=== PATIENT | male | born 1955 | race Caucasian/White ===

== ENCOUNTER 2016-10-03 02:49 | Day surgery (SDC) | payer OTHER ==
[~2016-10-03 02:49] MED LIST: AMLO10TA3 PO; ATEN50TA PO; FERR-83 PO; OMEP40CA36 PO; SPIR100T3 PO
[2016-10-03] MEDS ORDERED: 0.9% Sodium Chloride 1,000 ML IV SCH (06:00)
[2016-10-03] MEDS ORDERED: fentaNYL-PF 50 mCg/mL 2 mL Inj IVPUSH PRN (06:00)
[2016-10-03] MEDS ORDERED: Sodium Chloride LOK Flush 10 mL Syringe IV PRN (06:00)
[2016-12-08] MEDS ORDERED: LEDI1TAB PO (14:46)
== END 2016-10-03 23:59 ==
LOC: END 02:49
PROVIDERS: ATTEND Internal Medicine Gastroenterology
DX: K74.69 Other cirrhosis of liver (principal); F17.210 Nicotine dependence, cigarettes, uncomplicated; Z79.899 Other long term (current) drug therapy

== ENCOUNTER 2016-10-12 11:08 | Day surgery (SDC) | payer OTHER ==
[~2016-10-12] VITALS: Ht 180.3 cm; Wt 114.0 kg
[~2016-10-12 11:08] MED LIST changes: +Sodium Chloride LOK Flush 10 mL Syringe IV PRN; +fentaNYL-PF 50 mCg/mL 2 mL Inj IVPUSH PRN
[2016-10-12 11:49] VITALS: BP 115/67; PULSE 67; RESP 16; O2SAT 95
[2016-10-12] MEDS: 0.9% Sodium Chloride 1,000 ML IV PRN ×2 (12:18→12:36)
[2016-10-12 12:50] VITALS: BP 116/74; PULSE 62; RESP 15; O2SAT 93
[2016-10-12 13:00] VITALS: BP 112/72; PULSE 65; RESP 14; O2SAT 95
[2016-10-12 13:09] VITALS: BP 109/68; PULSE 62; RESP 16; O2SAT 96
--- NOTE | 2016-10-12 14:30 | ENDO ---
[address] [address] ENDOSCOPY PROCEDURE PATIENT: SANDY SEARS : 1955 MR#: [id number] ADMIT: 10/12/2016 JOB ID: [id number] REVIEW OF SYSTEMS: 10/12/2016 PRIMARY PROVIDER: ALANA Saravia. PROCEDURE: Esophagogastroduodenoscopy with brushing. INDICATIONS: A 60-year-old male with cirrhosis, reporting for variceal surveillance. EQUIPMENT: GIF-H180. SEDATION: 1. Versed 5 mg. 2. Fentanyl 100 mcg. COMPLICATIONS: None identified. PROCEDURE INFORMATION: After the risks and benefits were explained, written and verbal informed consent was obtained. The patient was brought into the endoscopy suite, placed into the left lateral decubitus position. Sedation was achieved using the above-stated medications with the addition of oxygen via nasal cannula. The scope was introduced into the mouth through a bite block, and advanced under direct visualization to the second portion of the duodenum. The scope was slowly withdrawn to carefully examine the mucosa for any defects or lesions. Retroflexed views were accomplished in the stomach. The stomach was decompressed. The scope removed from the patient who tolerated the procedure well. FINDINGS: 1. Duodenum: No pathology identified from the bulb through to the second portion. 2. Stomach: No mass lesions. No outlet obstruction. Minimal portal hypertensive gastropathy with elements of nodularity that appeared quite benign visually in the antrum and prepyloric region. I did not see any gastric varices including retroflexed views of the LES. 3. Esophagus: The squamocolumnar junction correlated with the top of the gastric folds. The GE junction was at 42 cm from the incisors. There was a very subtle stenosis without any mucosal pathology right proximal to the GE junction. The scope was able to pass through this but did actually perform a little bit of a dilatation effect after traversing all the way to the duodenum. No evidence of any ongoing sustained hemorrhage. There did not seem to be much in the way of variceal cushions in the distal esophagus. In the mid esophagus there was perhaps grade 1 esophageal varices without stigmata. In the proximal esophagus there were several plaque-like formations suggestive of jorge overgrowth and these were brushed for [facility] wet prep analysis. ENDOSCOPIC DIAGNOSES: 1. Possible proximal esophageal candidiasis. 2. Benign distal esophageal stricture, status post scope dilatation. 3. Mild mid esophageal varices. 4. Portal hypertensive gastropathy. RECOMMENDATIONS: 1. Await [facility] wet prep results. These should be available tomorrow. If positive for yeast, then I would recommend a 21-day course of fluconazole. 2. Repeat EGD in approximately one year.
[2016-12-08] MEDS ORDERED: LEDI1TAB PO (14:46)
== END 2016-10-12 23:59 | disposition home or self-care (01) ==
LOC: END 11:08
PROVIDERS: ATTEND Internal Medicine Gastroenterology
DX: K74.69 Other cirrhosis of liver (principal); I85.00 Esophageal varices without bleeding; K76.6 Portal hypertension; D50.9 Iron deficiency anemia, unspecified; M19.90 Unspecified osteoarthritis, unspecified site; B18.2 Chronic viral hepatitis C; F43.10 Post-traumatic stress disorder, unspecified; I10 Essential (primary) hypertension
CPT/HCPCS: 43239; 87220; G0500; J2250; J3010; J7030